=== PATIENT | male | born 1955 | race Caucasian/White ===

== ENCOUNTER 2017-01-01 15:27 | Inpatient (IN) | payer BC, OTHER ==
[~2017-01-01] VITALS: Ht 182.9 cm; Wt 68.2 kg
--- NOTE | ~2017-01-01 | H ---
[facility] [place] [address] HISTORY AND PHYSICAL Name: RASTA HSU Room #: 513-P ADM IN M.R.#: [id number] Admission: 01/01/17 Attend Phys: Dawood Durán MD Discharge: Date of : 51 Report #: [id number] THIS REPORT FOR: //name// CC: Dawood Durán [facility] DATE OF SERVICE: 01/02/2017 HISTORY OF PRESENT ILLNESS: The patient is a 61-year-old white male who recently hospitalized at [facility] from 12/12/2016-12/22/2016, with history of sepsis, pneumonia, right-sided DVT, lymphoma, and acute renal insufficiency. He was discharged back to the home setting on Lovenox. His course was complicated by his leg is giving out while he was ambulating without using a walker. He had the onset of some left-sided flank and lower extremity pain. He complained of numbness and weakness of the proximal left lower extremity. He also was having problems with bright red blood per rectum. He had left lower quadrant abdominal pain. Evaluation revealed the retroperitoneal hematoma. He underwent IVC filter placement on 12/25/2016. He was noted to have some mild enterogastritis and was thought to need a colonoscopy and capsule study at some point per gastroenterology. He was seen by neurology regarding his proximal left lower extremity weakness and was thought to be consistent with a femoral nerve injury. He was noted to have significant weakness of that left proximal lower extremity. PAST MEDICAL HISTORY: Includes chronic anemia, B-cell lymphoma, chronic kidney disease stage 3, recent pneumonia, right leg DVT, atrial fibrillation, Raynaud syndrome, and peripheral neuropathy. PAST SURGICAL HISTORY: Neck surgery, appendectomy, right and left ulnar nerve and carpal tunnel repair, and port-A-Cath placement. ALLERGIES: No known drug allergies. MEDICATIONS: Please see the full medication listing. HABITS: Had been a smoker up to a half pack per day. Also, has a history of regular alcohol use. FAMILY HISTORY: Noncontributory. SOCIAL HISTORY: He has been living with his daughter and son-in-law. House one step, did not use gait aids. Apparently had a walker, but did not use. Daughter is noted to be unemployed and able to assist. Son-in-law also works out of the home, although he can be out of town at times. REVIEW OF SYSTEMS: Did not offer any current complaints of chest pain, [facility] [address] [place] [address] HISTORY AND PHYSICAL Name: RASTA HSU Room #: 513-P [facility] IN .R.#: [id number] Admission: 01/01/17 Attend Phys: Dawood Durán MD Discharge: Date of : 51 Report #: [id number] shortness of breath or abdominal discomfort. Complains of overall generalized weakness and especially that left proximal lower extremity weakness. PHYSICAL EXAMINATION: GENERAL: He is a pleasant 61-year-old male, in no obvious distress. He is of slender build. He has had a Penny catheter in place. VITAL SIGNS: Last recorded temperature 99.4, pulse 80, respirations 17, and blood pressure 136/90. HEENT: He has scalp alopecia. EOMs are full. Facies are symmetric. CHEST: Some diffuse breath sounds were decreased. CARDIAC: Sounded regular rate and rhythm. ABDOMEN: Bowel sounds positive, nontender. GENITOURINARY: Deferred. RECTAL: Deferred. EXTREMITIES: Functional range of motion of both upper extremities without focal weakness. DTRs are trace to 1. He has functional range of motion of the right lower extremity with strength a grade 4/5. Left lower extremity has significant proximal weakness, although he does have at least a grade 2- of left hip flexion and 2- of knee extension and there is some palpable contracture noted. Knee flexion is a grade 4- to 4, ankle dorsiflexion is a grade 4, eversion is 4-4+. Functionally, he has min assist with transfers. He is ambulated only 5 feet mod assist. ASSESSMENT: A 61-year-old white male with the following problem list: 1. Left lower extremity femoral nerve injury with hip flexor and knee extensor weakness and anterior thigh numbness. 2. Functional mobility and activities of daily living deficits. 3. Retroperitoneal hematoma. 4. Prior history of peripheral neuropathy. 5. History of gastrointestinal bleed with enterogastritis. 6. Right-sided deep venous thrombosis, now status post inferior vena cava filter placed on 12/25/2016. 7. Recent sepsis. 8. Recent pneumonia. 9. Recent acute renal insufficiency. 10. B-cell lymphoma, on previous chemotherapy. 11. History of tobacco abuse and excess ETOH. PLAN: The patient is admitted for acute in-hospital inpatient rehabilitation. Gastroenterology noted that he had had colonoscopy within the past 2 years and no plans for further colonoscopy at this point. He has had heme negative stools. Hemoglobin has been stable and he has been okay to transfer to the [facility]hab [facility]. From a postadmission physician evaluation perspective, there are no relevant changes since the preadmission screening. Please see the above review of prior and current medical and functional conditions and comorbidities. The patient will be involved in the interdisciplinary acute [address] [address] HISTORY AND PHYSICAL Name: RASTA HSU Room #: 513-P ADM IN ..#: [id number] Admission: 01/01/17 Attend Phys: Dawood Durán MD Discharge: Date of : 51 Report #: [id number] inpatient rehabilitation program with the goal of maximizing his functional independence, so that he can hopefully become independent with basic mobility and ADLs at the walker level. We may need to consider knee bracing and we will add some electrical stimulation to the quadriceps for now. Discussion was held with therapy team. The patient appears motivated and we will be glad to work with him on achieving his functional maximum to try to get him back to the home setting. The multiple etl consultant physicians will continue to follow along while he is on the rehab [facility]. <ELECTRONICALLY SIGNED> By: Dawood Durán MD 01/03/17 1513 [id number] Dawood Durán MD /nt
--- NOTE | ~2017-01-01 | HC ---
[facility] [place] [address] CONSULTATION Name: RASTA HSU Room #: 513-P ADM IN M.R.#: [id number] Admission: 01/01/17 Attend Phys: Dawood Durán MD Discharge: Date of : 51 Report #: [id number] THIS REPORT FOR: //name// CC: Dawood Durán [facility] DATE OF SERVICE: 01/06/2017 ATTENDING PHYSICIAN: Dawood Durán M.D. WALKING DRAGLINE OPERATOR: Rony Lerner, PhD. CLINICAL PRESENTATION: The patient is a 61-year-old male admitted to the rehabilitation unit at [facility] for comprehensive inpatient rehabilitation program to improve functional mobility, activities of daily living and self-care secondary to medical complications and treatment of lymphoma. He has a history of sepsis, pneumonia, right-sided DVT, lymphoma and acute renal insufficiency. The patient was discharged to his home on Lovenox when he developed complications. He eventually was diagnosed with a retroperitoneal bleed. He had retroperitoneal hematoma. He underwent an IVC filter placement, 12/25/2016. He was seen by neurology regard proximal left lower extremity weakness that was reported to be consistent with femoral nerve injury. His assessment on the rehab unit is left lower extremity femoral nerve injury with hip flexor and knee extensor weakness and anterior thigh numbness, functional mobility and activities of daily living deficits, retroperitoneal hematoma, prior history of peripheral neuropathy, history of gastrointestinal bleed with enterogastritis, right-sided deep venous thrombosis, recent sepsis, pneumonia, recent acute renal insufficiency, B-cell lymphoma, on previous month therapy and history of tobacco abuse and excessive alcohol. A complete description of his medical condition and history can be found in his medical record. Neuropsychological consultation was requested to provide assistance in the assessment of cognitive and emotional status and to provide recommendations and services. The patient is a high school graduate. He was living at home with his daughter at the time of this deterioration in his medical condition. The patient has 2 children. He reports a remote history of concussion. He indicates having needed to retired because of his medical condition. 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 The patient does report a remote history of alcohol abuse. TECHNIQUES UTILIZED: Clinical interview, review of medical records, staff consultation and behavioral observation, mini mental status exam 2 standard version, clock drawing and category fluency assessment. [address] [address] CONSULTATION Name: RASTA HSU Room #: 513-P [facility] IN M.R.#: [id number] Admission: 01/01/17 Attend Phys: Dawood Durán MD Discharge: Date of : 51 Report #: [id number] EXAMINATION FINDINGS: The patient was alert and cooperative with the assessment. He presents with increased irritability and frustration in regard to his hospitalization. He is amnestic surrounding his initial hospitalization. Appeared confusion and disorientation initially during his treatment; however, his level of orientation has improved. He does not report auditory or visual hallucinations. There is no report of suicidal ideation. He describes his primary symptoms in regard to sleep and appetite. Anxiety and depression are also acknowledged. He does not report difficulty with memory or word finding at this time. His performance on the MMSE 2 brief version was within normal limits with a raw score of 14-16. He was 3 of 3 for initial registration, 3 of 5 for orientation to time, 5/[address] and 3 of 3 for immediate recall of 3 items after a brief time delay and distraction. His performance on the MMSE 2 standard version is within normal limits with a raw score of 27/30. He was 4/5 for serial 7's. The raw score was 26 of 30 on the MMSE 2 standard version. He was 4/5 for serial 7s, 2 of 2 for naming, 1 of 1 for repetition, could read and follow single command. The patient was able to write a sentence. He had some difficulty with copying a simple geometrics. He was able to draw a clock and set the hands at a designated time. The patient is somewhat impulsive. His functioning and category fluency was within normal limits with a raw score of 19. DIAGNOSTIC IMPRESSION: 1. Adjustment disorder with anxiety and depressed mood. 2. Delirium- resolved. RECOMMENDATIONS: The patient may benefit from the use of antidepressant medication assist in the management of anxiety and depression following his discharge. Psychological counseling would also be helpful to assist in adjustment. Relaxation techniques along with strategies to assist with adjustment to disability. It is likely that his daughter should help to assist in management of his medication and nutrition to maintain safety. Thank you very much for allowing me to provide the consultation on this patient. <ELECTRONICALLY SIGNED> By: Rony Lerner, PhD 01/12/17 1427 [id number] [id number] Rony Lerner, PhD /nt
--- NOTE | ~2017-01-01 | PLAN ---
[facility] [place] [address] REHAB UNIT PLAN OF CARE Name: RASTA HSU Room #: 513-P ADM IN M.R.#: [id number] Admission: 01/01/17 Attend Phys: Dawood Durán MD Discharge: Date of : 51 Report #: [id number] THIS REPORT FOR: //name// CC: Dawood Durán [facility] HISTORY OF PRESENT ILLNESS: The patient is seen back today in followup. No specific complaints. He does have temperature that was up to 101.3, that nursing is aware. He denies any specific complaints such has a cough or increased pain etc. He does have some abdominal discomfort, which is not new. He is otherwise pleasant, appropriate. Appears to be moving his left lower extremity a little bit better proximally. No focal calf swelling. He did progress with transfers, min assist. Lower extremity dressing is min assist and is now ambulating 20 feet min assist with the front wheeled walker. ASSESSMENT: 1. Left lower extremity femoral nerve injury with hip flexor and knee extensor weakness and anterior thigh numbness. 2. Functional mobility and ADL deficits. 3. Retroperitoneal hematoma. 4. Febrile episode this morning. We will defer to his Internal Medicine physician following regarding medical issues as well as this multiple other leadership development consultant physicians. He nevertheless appears to be doing quite well. 5. Prior history of peripheral neuropathy. 6. History of GI bleed with antral gastritis. 7. Right-sided DVT status post IVC filter placed 12/25/2016. 8. Recent sepsis. 9. Recent pneumonia. 10. Recent acute renal insufficiency. 11. B cell lymphoma on previous chemotherapy. 12. History of tobacco abuse. 13. ETOH. PLAN: The patient is on amoxicillin as noted. The overall plan of care is based on the preadmission screen, post-admission physician evaluation and information garnered from therapy assessments. 1. Estimated length of stay is probably at least 10 days to 2 weeks pending his progress. We will need to see how he does. 2. Medical prognosis is reasonably good. 3. Anticipated interventions includes the interdisciplinary acute inpatient rehabilitation program. 4. Anticipated functional outcomes would be for the patient to become modified independent with transfers and mobility issues and ADLs at the walker level. 5. Discharge destination would be back to the home setting where he lives with his daughter and son-in-law. 6. Expected therapy by discipline includes PT and OT 1 and 1-1/2 [place] [address] REHAB UNIT PLAN OF CARE Name: RASTA HSU Room #: 513-P [facility] IN ..#: [id number] Admission: 01/01/17 Attend Phys: Dawood Duárn MD Discharge: Date of : 51 Report #: [id number] each five days a week throughout the duration of the acute inpatient rehabilitation stay. <ELECTRONICALLY SIGNED> By: Dawood Durán MD 01/03/17 1513 [id number] Dawood Durán MD /martín
[~2017-01-01 15:27] MED LIST: AUGMENTIN 875875 MG PO; CYCLOPHOSPHAMIDE1 GM IV; DELTASONE20 MG PO; DOXORUBICIN2 MG/1 ML IV; ENOXAPARIN80 MG/0.1 SUBQ; HYDROCODONE-APA1 TA1 PO; KLOR-CON 10 ER10 MEQ PO; LANOXIN 0.120.125 M1 PO; LEVAQUIN 500 M500 M1 PO; MAGOX 400400 MG PO; METOPROLOL SUCC25 M1 PO; MUCINEX DM ER1 EACH PO; MUCINEX TA600 MG/TA2 PO; NICOTINE TRANSD14 M1 TRANSDERM; ONDANSETRON HCL4 M2 PO; PACERONE 200 M200 M1 PO; PRINIVIL5 MG PO; RITUXAN100 MG/10 IV; VINCRISTINE IV; XANAX1 MG PO
[2017-01-02 03:53] LABS: HEMATOCRIT 24.5 % (42.0-52.0); HEMOGLOBIN 8.4 gm/dL (14.0-18.0); MCH 30.1 pg (26.0-34.0); MCHC 34.3 g/dL (28.0-37.0); MCV 87.9 fL (80.0-100.0); RBC 2.79 mil/uL (4.50-6.00); RDW 15.6 % (10.5-14.5); WBC 2.5 thou/uL (4.0-11.0)
[2017-01-02 03:59] LABS: CALCIUM 8.3 mg/dL (8.5-10.1); CREATININE 1.1 mg/dL (0.6-1.3); POTASSIUM 3.4 mmol/L (3.5-5.1)
[2017-01-05 18:42] LABS: CALCIUM 8.8 mg/dL (8.5-10.1); CREATININE 1.2 mg/dL (0.6-1.3); MAGNESIUM 1.6 mg/dL (1.8-2.4); POTASSIUM 4.5 mmol/L (3.5-5.1)
[2017-01-08 04:59] LABS: HEMATOCRIT 25.9 % (42.0-52.0); HEMOGLOBIN 8.8 gm/dL (14.0-18.0); MCH 29.9 pg (26.0-34.0); MCHC 33.9 g/dL (28.0-37.0); MCV 88.3 fL (80.0-100.0); PLATELET COUNT 307 thou/uL (150-400); RBC 2.93 mil/uL (4.50-6.00); RDW 15.8 % (10.5-14.5); WBC 3.7 thou/uL (4.0-11.0)
[2017-01-08 05:02] LABS: MANUAL DIFF YES
[2017-01-08 05:12] LABS: ALBUMIN 2.3 g/dL (3.4-5.0); CREATININE 1.3 mg/dL (0.6-1.3); POTASSIUM 4.6 mmol/L (3.5-5.1); TOTAL BILIRUBIN 0.4 mg/dL (<0.1-1.0); TOTAL PROTEIN 5.8 g/dL (6.4-8.2)
[2017-01-08 06:52] LABS: ABSOLUTE NEUTROPHILS 2.2 thou/uL (1.4-8.2); TOTAL CELL COUNT 100
[2017-01-12 05:58] LABS: HEMOGLOBIN 9.1 gm/dL (14.0-18.0); MCH 30.3 pg (26.0-34.0); MCHC 34.8 g/dL (28.0-37.0); MCV 87.1 fL (80.0-100.0); RBC 2.99 mil/uL (4.50-6.00); RDW 16.3 % (10.5-14.5); WBC 2.9 thou/uL (4.0-11.0)
[2017-01-12 06:22] LABS: ALBUMIN 2.4 g/dL (3.4-5.0); CALCIUM 9.3 mg/dL (8.5-10.1); CREATININE 1.4 mg/dL (0.6-1.3); MAGNESIUM 1.8 mg/dL (1.8-2.4); POTASSIUM 3.9 mmol/L (3.5-5.1); TOTAL BILIRUBIN 0.3 mg/dL (<0.1-1.0); TOTAL PROTEIN 5.8 g/dL (6.4-8.2)
[2017-01-13 05:28] LABS: ALBUMIN 2.6 g/dL (3.4-5.0); CALCIUM 9.3 mg/dL (8.5-10.1); CREATININE 1.3 mg/dL (0.6-1.3); PHOSPHORUS 5.1 mg/dL (2.5-4.9); POTASSIUM 4.1 mmol/L (3.5-5.1)
[2017-01-13] MEDS ORDERED: FLOMAX0.4 MG PO (07:44)
[2017-01-13] MEDS ORDERED: K-DUR 20 MEQ T20 MEQ PO (11:06)
[2017-01-13] MEDS ORDERED: GABAPENTIN 100100 MG PO (12:16)
[2017-01-13] MEDS ORDERED: PACERONE 200 M200 M1 PO (12:16)
== END 2017-01-13 13:26 | disposition home health service (06) | DRG 73 ==
PROVIDERS: Hospitalist; Nurse Practitioner Family; Physical Medicine & Rehabilitation; Registered Nurse
DX: S74.12XA Injury of femoral nerve at hip and thigh level, left leg, initial encounter (principal); K66.1 Hemoperitoneum; J18.9 Pneumonia, unspecified organism; N17.9 Acute kidney failure, unspecified; C85.10 Unspecified B-cell lymphoma, unspecified site; G62.9 Polyneuropathy, unspecified; G57.22 Lesion of femoral nerve, left lower limb; F43.23 Adjustment disorder with mixed anxiety and depressed mood; R41.0 Disorientation, unspecified; N18.3 Chronic kidney disease, stage 3 (moderate); F10.21 Alcohol dependence, in remission; F17.210 Nicotine dependence, cigarettes, uncomplicated; X58.XXXA Exposure to other specified factors, initial encounter; D64.9 Anemia, unspecified; R63.0 Anorexia; I48.91 Unspecified atrial fibrillation; I73.00 Raynaud's syndrome without gangrene; Z90.49 Acquired absence of other specified parts of digestive tract; Y93.89 Activity, other specified; Y92.89 Other specified places as the place of occurrence of the external cause; Z86.718 Personal history of other venous thrombosis and embolism; Y99.8 Other external cause status
CPT/HCPCS: 10112